=== PATIENT | female | born 1950 | race Caucasian/White ===

== ENCOUNTER → 2018-05-01 | Outpatient (CLI) | payer MEDICARE, BC | END | disposition home or self-care (01) | LOC: PCVCCLINIC 15:49 | PROVIDERS: ATTEND Internal Medicine Cardiovascular Disease | DX: R93.1 Abnormal findings on diagnostic imaging of heart and coronary circulation (principal); I10 Essential (primary) hypertension; E78.00 Pure hypercholesterolemia, unspecified; R00.1 Bradycardia, unspecified; E78.5 Hyperlipidemia, unspecified; Z87.891 Personal history of nicotine dependence | CPT/HCPCS: 93005; G0463 ==

== ENCOUNTER → 2018-05-25 | Outpatient (CLI) | payer MEDICARE, BC ==
--- NOTE | 2018-05-25 11:35 | PCVCIMAG ---
APPROVED REPORT Study performed: 05/25/2018 10:18:32 Exam: Stress Echocardiogram Indication: elevated coronary calcium, htn, bradycardia, hlp Patient Location: Echo lab Stress Nurse: Mirela Tam RN Status: routine Ht: 5 ft 1 in HR: 60 bpm BP: 152/74 mmHg Rhythm: NSR Procedure The patient underwent an Exercise Stress Test using the Warner Protocol. Blood pressure, heart rate, and EKG were monitored. An Echocardiogram was performed by instructor adjunct surgical technician in four stages in quad fashion. At peak stress, four selected images were obtained and placed side by side with resting images for comparison. Stress Test Details Stress Test: Exercise stress testing was performed using a Warner protocol. HR Resting HR: 60 bpmMax Heart Rate (APMHR): 151 bpm Max HR Achieved: 164 bpmTarget HR (85% APMHR): 128 bpm % of APMHR: 108 Recovery HR: 92 bpm HR response to stress: Normal HR response to stress BP Resting BP: 152/74 mmHg Max BP: 182/78 mmHg Recovery BP: 156/76 mmHg BP response to stress: Normal blood pressure response to stress. ECG Resting ECG: Sinus Rhythm Stress ECG: Sinus Rhythm ST Change: Nonspecific ST abnormalities Arrhythmia: frequent PACs Recovery ECG: Sinus Rhythm Recovery ST Change: Normal Recovery Arrhythmia: PACs Clinical Reason for Termination: Maximal effort Stress Symptoms: Dyspnea Exercise duration: 7 min 4 sec Highest Stage Achieved: Stage 3: 3.4 mph at 14% grade. Exercise capacity: 10.1 METs Overall Exercise Capacity for Age: Normal Scale: Active Angina Score: None Pre-Stress Echo The resting Echocardiogram showed normal left ventricular contractility with an estimated Ejection Fraction of about >55%. Normal wall motion in all segments on baseline images. Post-Stress Echo The stress Echocardiogram showed normal left ventricular contractility with an estimated Ejection Fraction of about 65%. Normal augmentation of wall motion in all segments on post stress images. Clinical No clinical or ECG evidence for ischemia. Conclusion Clinical Response: Non-ischemic Exercise Capacity: Average Stress ECG Response: Non-ischemic Stress Echo Images: Non-ischemic The left ventricle is normal in size and wall thickness in both the rest and stress images. Mild AI, MR, and TR. Other Information Study Quality: Adequate <Conclusion> The left ventricle is normal in size and wall thickness in both the rest and stress images. Mild AI, MR, and TR.
== END | disposition home or self-care (01) ==
LOC: PCVCIMAG 10:29
PROVIDERS: ATTEND Internal Medicine Cardiovascular Disease
DX: R93.1 Abnormal findings on diagnostic imaging of heart and coronary circulation (principal); I10 Essential (primary) hypertension; R00.1 Bradycardia, unspecified; E78.00 Pure hypercholesterolemia, unspecified; R06.02 Shortness of breath; E78.5 Hyperlipidemia, unspecified; Z87.891 Personal history of nicotine dependence
CPT/HCPCS: 36415; 93325; 93351; G0463

== ENCOUNTER → 2018-12-28 | Outpatient (CLI) | payer MEDICARE, BC ==
--- NOTE | 2018-12-28 09:22 | PCVCIMAG ---
APPROVED REPORT Study performed: 12/28/2018 08:36:19 EXAM: Comprehensive 2D, Doppler, and color-flow Echocardiogram Patient Location: Echo lab Status: routine BSA: 1.73 HR: 52 bpmBP: 140/80 mmHg Rhythm: NSR Other Information Study Quality: Excellent Risk Factors: Cardiac Risk Factors: HTN, Hyperlipidemia Indications Elevated calcium score 2D Dimensions IVSd: 10.92 (7-11mm)LVOT Diam: 18.21 (18-24mm) LVDd: 36.15 mm PWd: 11.34 (7-11mm)Ascending Ao: 30.46 (22-36mm) LVDs: 24.61 (25-40mm) Left Atrium: 35.06 (27-40mm) Aortic Root: 24.02 mm LV Single Plane 2CH: 61.73 % Volumes Left Atrial Volume (Systole) Single Plane 4CH: 55.85 mLSingle Plane 2CH: 52.64 mL LA ESV Index: 32.00 mL/m2 Aortic Valve AoV Peak Tristen.: 1.47 m/s AO Peak Gr.: 8.69 mmHgLVOT Max P.82 mmHg LVOT Max V: 1.10 m/s ANNE Vmax: 1.94 cm2 AI Vmax: 4.06 m/s AI [place]: 2.26 m/s2 AI PHT: 521.16 ms Mitral Valve E/A Ratio: 0.9 MV Decel. Time: 203.37 ms MV E Max Tristen.: 0.80 m/s MV A Tristen.: 0.91 m/s IVRT: 44.98 ms TDI E/Lateral E': 6.67E/Medial E': 10.00 Medial E' Tristen.: 0.08 m/s Lateral E' Tristen.: 0.12 m/s Pulmonary Valve PV Peak Gr.: 5.19 mmHg Pulmonary Vein P Vein S: 0.69 m/sP Vein A: 0.49 m/s P Vein D: 0.49 m/sP Vein A Dur.: 86.5 msec P Vein S/D Ratio: 1.41 Tricuspid Valve TR Peak Tristen.: 2.72 m/s TR Peak Gr.: 29.49 mmHg Left Ventricle The left ventricle is normal size. There is normal LV segmental wall motion. There is normal left ventricular wall thickness. Left ventricular systolic function is normal. The left ventricular ejection fraction is within the normal range. LVEF is 60-65%. Grade I - abnormal relaxation pattern. Right Ventricle The right ventricle is normal size. The right ventricular systolic function is normal. Atria The left atrium size is normal. The right atrium size is normal. Aortic Valve The aortic valve is normal in structure. Mild aortic regurgitation. There is no aortic valvular stenosis. Mitral Valve The mitral valve is normal in structure. Mild mitral regurgitation. No evidence of mitral valve stenosis. Tricuspid Valve The tricuspid valve is normal in structure. Mild tricuspid regurgitation. Pulmonary artery pressure is 36mmhg. Pulmonic Valve The pulmonary valve is normal in structure. There is no pulmonic valvular regurgitation. Great Vessels The aortic root is normal in size. IVC is normal in size and collapses >50% with inspiration. Pericardium There is no pericardial effusion. <Conclusion> The left ventricle is normal size. There is normal left ventricular wall thickness. Left ventricular systolic function is normal. The right ventricle is normal size. The left atrium size is normal. Mild aortic regurgitation. Mild mitral regurgitation. Mild tricuspid regurgitation. Pulmonary artery pressure is 36mmhg.
== END | disposition home or self-care (01) ==
LOC: PCVCIMAG 08:18
PROVIDERS: ATTEND Internal Medicine Cardiovascular Disease
DX: I08.3 Combined rheumatic disorders of mitral, aortic and tricuspid valves (principal); I11.9 Hypertensive heart disease without heart failure; R00.1 Bradycardia, unspecified; E78.00 Pure hypercholesterolemia, unspecified; I25.10 Atherosclerotic heart disease of native coronary artery without angina pectoris; E78.5 Hyperlipidemia, unspecified; Z79.899 Other long term (current) drug therapy; Z72.89 Other problems related to lifestyle
CPT/HCPCS: 93005; 93306; G0463